=== PATIENT | male | born 1985 | race American Indian/Alaskan Native ===

== ENCOUNTER 2017-08-25 01:37 | Emergency (ER) | payer SELFPAY ==
[2017-08-25] MEDS ORDERED: XYLOCAINE 2% INFILTRATI ONE ×2 (02:41→03:31)
[2017-08-25] MEDS ORDERED: PERCOCET 5/325 ONE (02:41)
--- NOTE | 2017-08-25 02:58 | XRay Report ---
FINAL REPORT PROCEDURE: XR FINGER(S) 2+V LT TECHNIQUE: LEFT 3rd finger radiographs, including AP, lateral, and oblique views. HISTORY: laceration s/p finger injury COMPARISON: No prior studies are available for comparison. FINDINGS: Fracture (s) and/or Dislocation(s): None . Alignment: Normal. Joint space(s): Normal . Soft tissues: There is soft tissue swelling of the 3rd digit.. Bone mineralization: Normal . Foreign bodies: None . IMPRESSION: There is no fracture or malalignment. There is soft tissue swelling of the 3rd digit.
--- NOTE | 2017-08-25 03:18 | Emergency Department Report ---
ED Laceration [facility] - HPI Occurred When: Yesterday (at approximately 11 PM 08/24/2017) Location: Upper Extremity (left middle finger cut accidentally while he was trying to cut meat with meat amparo.) Severity: severe Tetanus Status: Up to Date Laceration Symptoms: Yes Pain (throbbing pain at 10/10 and worse with movement no alleviating factor.), No Foreign Body Sensation, No Numbness, No Weakness Other History: This is a 32-year-old male patient reports that he cut is left middle finger while trying to cut meat using a meat amparo. He said he slipped and cut his finger going through his nail. He reports pain 10 out of 10 that is worse with movement and is constant. Pain is throbbing. Tetanus vaccine is up-to-date. He states that he try to stop the bleeding by putting pressure on it but he is here to have his finger evaluated and for stitches. Denies any difficulty in moving fingers of left hand. Denies any radiation of pain proximally. Denies any pain in his hand and pain is localized to his left finger around nail bed. He did not take any medication prior to coming to the emergency room. <SIRI WILKINSON - Last Filed: 08/25/17 04:46> <KAYLENE NUNEZ - Last Filed: 08/25/17 16:48> - [facility] Chief Complaint: Wound/Laceration Stated Complaint: LEFT FINGER LACERATION Time Seen by Provider: 08/25/17 02:16 ED Review of Systems ROS: Stated complaint: LEFT FINGER LACERATION Other details as noted in HPI Constitutional: denies: chills, fever ENT: denies: throat pain Respiratory: denies: cough, shortness of breath, SOB with exertion, SOB at rest , wheezing Cardiovascular: denies: chest pain, palpitations, edema, syncope Gastrointestinal: denies: nausea, vomiting Musculoskeletal: joint swelling, arthralgia. denies: back pain Skin: change in hair/nails (nail injury left middle finger), other (laceration to left middle finger around nail bed). 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 He is . <SIRI WILKINSON - Last Filed: 08/25/17 04:46> <KAYLENE NUNEZ - Last Filed: 08/25/17 16:48> - Medications Home Medications: Home Medications Medication Instructions Recorded Confirmed Last Taken Type Acetaminophen/Codeine [Tylenol 1 tab PO Q6H PRN #12 tab 08/25/17 Unknown Rx /Codeine # 3 tab] Clindamycin [Clindamycin CAP] 300 mg PO Q8H 10 Days #30 cap 08/25/17 Unknown Rx Ibuprofen [Motrin] 600 mg PO Q8H PRN #15 tablet 08/25/17 Unknown Rx Laceration Physical Exam - Exam General: Vital signs noted. No distress. Alert and acting appropriately. This is a 32-year-old male well-nourished well-developed in no acute distress. Wound Length (cm): 4 (circular laceration from tuft of finger extending to mid nail on left middle finger) Laceration Location: Upper Extremity (left middle finger at tuft of finger with laceration extended into the nail.) Laceration Exam: Yes Normal Distal CMS (No cce. + 2 pulses in all extremities, no neurovascular compromise), No Foreign Body, No Exposed Tendon, Vessel, or Nerve (subcutaneous layer), No Tendon Injury (patient with no restriction of movement to the fingers. He can use his thumb and touch all his fingers on the left hand. No restriction in range of motion to wrist or hand.) <SIRI WILKINSON - Last Filed: 08/25/17 04:46> - Exam General: Vital signs noted. No distress. Alert and acting appropriately. <KAYLENE NUNEZ - Last Filed: 08/25/17 16:48> ED Course Vital Signs 08/25/17 01:53 Temperature 98.2 F Pulse Rate 80 Respiratory 18 Rate Blood Pressure 117/74 O2 Sat by Pulse 99 Oximetry - Reevaluation(s) Reevaluation #1: 08/25/17 03:20 Patient is stable he is given Percocet 5/325 2 tablets by mouth and his pain has been relieved to his left finger. Patient to receive clindamycin 600 mg IM and we will reevaluate. Tetanus vaccine is up-to-date. Reevaluation #2: 08/25/17 04:52 Pain is controlled and patient given clindamycin 600 mg IM with no adverse reaction. Please see procedure note for laceration repair and digital block in. <SIRI WILKINSON - Last Filed: 08/25/17 04:46> Vital Signs 08/25/17 08/25/17 08/25/17 01:53 03:34 04:34 Temperature 98.2 F Pulse Rate 80 Respiratory 18 18 18 Rate Blood Pressure 117/74 Blood Pressure [Right] O2 Sat by Pulse 99 Oximetry 08/25/17 05:10 Temperature Pulse Rate 80 Respiratory 18 Rate Blood Pressure Blood Pressure 116/75 [Right] O2 Sat by Pulse 100 Oximetry <KAYLENE NUNEZ - Last Filed: 08/25/17 16:48> - Laceration /Wound Repair Left Distal Finger Wound Location: upper extremity (left distal middle finger at tuft and across nail) Wound Length (cm): 4 (subcutaneous extending into nail) Wound's Depth, Shape: linear, irregular (and circular. Fingernail laceration without any nail bed involvement), contused tissue Wound Explored: no foreign body removed Irrigated w/ Saline (ccs): 500 Betadine Prep?: Yes Volume Anesthetic (ccs): 0 (see digital block and) Wound Debrided: moderate Wound Repaired With: sutures Suture Size/Type: 3:0 (Ethilon) Number of Sutures: 15 Layer Closure?: No Sterile Dressing Applied?: Yes (nonadhesive followed by bulky dressing.) - Nerve Block Consent Obtained: verbal consent Time Out Performed: Yes Local Anesthetic Used: Lidocaine 1% Amount of anesthesia used: 7 Side: left (left middle finger) Nerve Blocks: digital Procedure Successful: Yes Complications: none Patient Tolerated Procedure: well, no complications Additional Comments: Digital block in successful. <SIRI WILKINSON - Last Filed: 08/25/17 04:46> ED Medical Decision Making - Radiology Data Radiology results: report reviewed X-ray of left third finger completed and dictated by radiologist and report reviewed by myself. See below for detail on report. Patient: KENISHA LOPEZ MR#: [id number] : 1985 Acct:[id number] Age/Sex: 32 / M ADM Date: 08/25/17 Loc: ED Attending Dr: Ordering Physician: CB ROGERS Date of Service: 08/25/17 Procedure(s): XR finger(s) 2+V LT Accession Number(s): [id number] cc: CB ROGERS Fluoro Time In Minutes: FINAL REPORT PROCEDURE: XR FINGER(S) 2+V LT TECHNIQUE: LEFT 3rd finger radiographs, including AP, lateral, and oblique views. HISTORY: laceration s/p finger injury COMPARISON: No prior studies are available for comparison. FINDINGS: Fracture (s) and/or Dislocation(s): None . Alignment: Normal. Joint space(s): Normal . Soft tissues: There is soft tissue swelling of the 3rd digit.. Bone mineralization: Normal . Foreign bodies: None . IMPRESSION: There is no fracture or malalignment. There is soft tissue swelling of the 3rd digit. Transcribed By: CO Dictated By: LEILA MEMBRENO MD Electronically Authenticated By: LEILA MEMBRENO MD Signed Date/Time: 08/25/17253 DD/ 3 TD/TT: 08/25/17253 - Medical Decision Making ED course This is a 32-year-old male who injured his left middle finger while trying to cut meat. Injured it meat amparo. He reports that he has injury to his nail and also around his nail. He states that he has a cut on his finger at the top and is due to be treated. Tetanus vaccine is up-to-date. He said he applied pressure. This happened at 11 PM on 08/24/2017. Patient evaluated by myself. He has circular, irregular, contused, subcutaneous layer laceration that is 4 cm from the tuft of his finger on the palmar side going around dorsally to his fingernails that is not involving the nailbed. Fingernail is still adhered to the nailbed but mid middle left finger nail is split. Noted small amount of bleeding. No foreign body seen. Tender to palpate. X-ray of left middle finger was done and dictated by radiologist and report reviewed by myself. Showed no acute fracture or dislocation but patient with soft tissue swelling. I discussed this with patient regarding his x-ray results and he voiced understanding. See procedure note for digital block in of left middle finger which was done successfully and also for laceration repair to left middle finger which was done successfully. Patient pain is controlled with lidocaine 1% after digital block in and he was given pain medication prior. A/P 1: Laceration to left middle finger involving nail.-laceration repair under sterile procedure. Please see procedure note for detail. Digital block in to left middle finger was done successfully. Please see procedure note for detail. Patient was given Percocet 5/325 2 tablets by mouth prior to digital block in which helped his pain. He is currently in no pain because his finger is numb from digital blocking. Patient given clindamycin 600 mg IM empirically for infection without any adverse reaction. Patient will be sent home on clindamycin. Tetanus vaccine is up-to-date 2: Arthralgia left middle finger: Pain is better after digital block and Percocet 3. Contusion left middle finger distally-like this was resolved after laceration healing. Patient educated on acute wound care, suture care, diagnosis, return to the emergency room in 10 days to have stitches removed, practice good hand hygiene and to avoid vigorous activity to fingers of left hand for at least 4 days. He voiced understanding. He was also educated on signs of infection. Patient discharged home with his family in stable condition. Vital signs are stable and is afebrile. He said he feels better and his pain is gone. Patient given prescription for Tylenol 3, Motrin and clindamycin and to follow-up with primary care in 2 days and also to return to the emergency room in 10 days to have stitches removed. Patient voiced understanding of discharge instructions and discharged home in stable condition. I instructed him to return to the hospital if he has problems in moving his fingers of his left hand, redness, swelling, drainage of pus, change in color to his fingernail or fingers, radiation of pain with difficulty moving fingers hand and wrist. Fever and/or chills. he voiced understanding - Differential Diagnosis finger fracture, closed versus open laceration <SIRI WILKINSON - Last Filed: 08/25/17 04:46> - Medical Decision Making I did not see or evaluate the patient. I was available for consultation the entire time the patient was in the ER. Gregory Nunez MD <KAYLENE NUNEZ - Last Filed: 08/25/17 16:48> Critical care attestation.: If time is entered above; I have spent that time in minutes in the direct care of this critically ill patient, excluding procedure time. <SIRI WILKINSON - Last Filed: 08/25/17 04:46> Critical care attestation.: If time is entered above; I have spent that time in minutes in the direct care of this critically ill patient, excluding procedure time. <KAYLENE NUNEZ - Last Filed: 08/25/17 16:48> ED Disposition Is pt being admited?: No Does the pt Need Aspirin: No <SIRI WILKINSON - Last Filed: 08/25/17 04:46> <KAYLENE NUNEZ - Last Filed: 08/25/17 16:48> Disposition: DC-01 TO HOME OR SELFCARE Condition: Stable Instructions: Suture Care (ED), Acute Wound Care (ED), Contusion in Adults (ED) , Finger Laceration (ED), Arthralgia (ED) Additional Instructions: Please see discharge instruction in acute wound care Please follow up with primary care physician and if he do not have a primary care physician follow-up at [facility] in 2 days return to emergency room in 10 days for removal of stitches Keep affected area clean and dry Take Tylenol 3 for severe pain and please do not drive or operate heavy machinery while taking this medication Motrin for mild to moderate pain and please take medication with food to prevent nausea or irritation to stomach lining Take clindamycin to prevent infection. Keep dressing on for 2 days and remove and try to cover her finger while you're outside to avoid getting any dust or debris in finger. Return to the emergency room if, he developed fever, chills, increased pain and drainage from site, nausea and vomited, increase in redness and/or weakness, Difficulty in moving fingers of left hand, left hand and wrist, change in color to finger and/or nail. Prescriptions: Acetaminophen/Codeine [Tylenol /Codeine # 3 tab] 1 tab PO Q6H PRN #12 tab PRN Reason: severe pain Clindamycin [Clindamycin CAP] 300 mg PO Q8H 10 Days #30 cap Ibuprofen [Motrin] 600 mg PO Q8H PRN #15 tablet PRN Reason: Pain Referrals: PRIMARY CARE, [Primary Care Provider] - 08/27/17 [facility] [Outside] - 08/27/17 return to, emergency room in 10 days [Other] - 09/04/17 (To have sutures removed from left middle finger) Forms: Accompanied Note, Work/School Release Form(ED)
[2017-08-25] MEDS ORDERED: CLEOCIN IM ONE (03:20)
[2017-08-25] MEDS ORDERED: PERCOCET 5/325 PO ONE (03:32)
[2017-08-25] MEDS ORDERED: NACL 0.9% 500 ML IR ONE (04:00)
[2017-08-25] MEDS ORDERED: NACL 0.9% IR ONE (04:04)
[2017-08-25] MEDS ORDERED: TRIPLE ANTIBIOTIC TP ONE ×2 (04:34→06:08)
[2017-08-25 05:11] VITALS: BP 116/75
== END 2017-08-25 05:22 | disposition home or self-care (01) ==
LOC: ED 01:37
DX: S61.213A Laceration without foreign body of left middle finger without damage to nail, initial encounter (principal); F12.10 Cannabis abuse, uncomplicated; W26.0XXA Contact with knife, initial encounter; Y93.89 Activity, other specified; Y92.89 Other specified places as the place of occurrence of the external cause; Y99.8 Other external cause status
CPT/HCPCS: 96372; 99283; A6250

== ENCOUNTER 2017-09-04 12:02 | Emergency (ER) | payer SELFPAY ==
[2017-09-04 12:30] VITALS: BP 110/75
--- NOTE | 2017-09-04 14:06 | Emergency Department Report ---
Suture/Staple Removal - [facility] Chief Complaint: Laceration/Recheck/Suture Stated Complaint: STITCHES OUT Time Seen by Provider: 09/04/17 14:01 When Sutures or [place] Placed: 8-10 Days Ago Wound Location: left middle finger ED Review of Systems ROS: Stated complaint: STITCHES OUT Other details as noted in HPI Constitutional: denies: chills, fever Eyes: denies: eye pain, eye discharge, vision change ENT: denies: ear pain, throat pain Respiratory: denies: cough, shortness of breath, wheezing Cardiovascular: denies: chest pain, palpitations Endocrine: no symptoms reported Gastrointestinal: denies: abdominal pain, nausea, diarrhea Genitourinary: denies: urgency, dysuria Musculoskeletal: denies: back pain, joint swelling, arthralgia Skin: denies: rash, lesions Neurological: denies: headache, weakness, paresthesias Psychiatric: denies: anxiety, depression Hematological/Lymphatic: denies: easy bleeding, easy bruising ED Past Medical Hx - Past Medical History Previous Medical History?: No - Surgical History Past Surgical History?: No - Social History Smoking Status: Current Every Day Smoker Substance Use Type: Alcohol, Marijuana - Medications Home Medications: Home Medications Medication Instructions Recorded Confirmed Last Taken Type Acetaminophen/Codeine [Tylenol 1 tab PO Q6H PRN #12 tab 08/25/17 Unknown Rx /Codeine # 3 tab] Clindamycin [Clindamycin CAP] 300 mg PO Q8H 10 Days #30 cap 08/25/17 Unknown Rx Ibuprofen [Motrin] 600 mg PO Q8H PRN #15 tablet 08/25/17 Unknown Rx Suture Removal Exam - Exam General: Vital signs noted. No distress. Alert and acting appropriately. Wound: No Pathologic Erythema, No Tenderness, No Drainage, No Pus, No Wound Dehiscence Other Systems: All other systems reviewed and are unremarkable. ED Course Vital Signs 09/04/17 12:26 Temperature 98.7 F Pulse Rate 70 Respiratory 20 Rate Blood Pressure 110/75 O2 Sat by Pulse 99 Oximetry - Reevaluation(s) Reevaluation #1: 09/04/17 14:15 Patient is speaking in full sentences with no signs of distress noted. ED Recheck MDM - Medical Decision Making 32-year-old male that presents with suture removal. Patient is stable was examined by me. Total of 6 sutures have been removed due to patient stating that sutures has been coming loose and has been thinking about herself. Patient stated that he took antibiotics for one day and stopped taking it. She denies any fever, chills, nausea, vomiting, chest pain, shortness of breath, headache or stiff neck. There is no signs of any extremities or abscess. Patient was instructed to continue taking antibiotics as prescribed. Steri streps and sterile dresssing applied. At time of discharge, the patient does not seem toxic or ill in appearance. No acute signs of distress noted. Patient agrees to discharge treatment plan of care. No further questions noted by the patient. Critical care attestation.: If time is entered above; I have spent that time in minutes in the direct care of this critically ill patient, excluding procedure time. ED Disposition Clinical Impression: Visit for suture removal Disposition: DC-01 TO HOME OR SELFCARE Is pt being admited?: No Does the pt Need Aspirin: No Condition: Stable Instructions: Suture Removal (ED) Additional Instructions: Follow-up with a primary care doctor in 3-5 days or if symptoms worsen and continue return to emergency room as soon as possible. Continue taking antibiotics as prescribed 2 during her previous visit Referrals: PRIMARY MD WALDEMAR [Primary Care Provider] - 3-5 Days ROSARIO WHITEHEAD MD [Staff Physician] - 3-5 Days [facility] [Outside] - 3-5 Days
== END 2017-09-04 14:47 | disposition home or self-care (01) ==
LOC: ED 12:02
DX: S61.213D Laceration without foreign body of left middle finger without damage to nail, subsequent encounter (principal); F17.200 Nicotine dependence, unspecified, uncomplicated; F12.10 Cannabis abuse, uncomplicated; X58.XXXD Exposure to other specified factors, subsequent encounter